=== PATIENT | female | born 1930 | race Caucasian/White ===

== ENCOUNTER 2017-09-08 20:29 | Emergency (ER) | payer OTHER ==
[2017-09-08 21:03] VITALS: BP 155/60
--- NOTE | 2017-09-08 21:12 | UC ---
Dizzy HPI HPI Summary: This is burtonrainer Piedrain documenting for attending Dr. Robyn Quiñonez MD. A 87 y/o female presents to [facility] c/o intermittent dizziness. Currently the patient still experiences intermittent dizziness. She noted that her symptoms haven't worsened. According to the patient, she has been experiencing intermittent dizziness going on since this morning. She noted that for the past couple days, she has been having company over at her house and preparing for her guests. Additionally, yesterday she took an energy tab with caffeine (takes it because it makes her stay awake and work). She also took Motrin because her legs started to hurt. 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 Pt denies any calf pain, nausea, vomiting, abdominal pain and diarrhea, however, she is constipated and has intermittent SOB. She noted that when she walks her breathe is taken away, so she has to stop and rest. She stated that she should be drinking more water to prevent being dehydrated.Additionally, DM, HTN, high triglycerides, high cholesterol and hernia. Last A1C was 7.2. - History Of Current Complaint Chief Complaint: UCDizziness Stated Complaint: DIZZINESS Time Seen by Provider: 09/08/17 20:41 Hx Obtained From: Patient Onset/Duration: Sudden Onset, Lasting Hours, Still Present Timing: Intermittent Episode Lasting Severity Currently: None Pain Intensity: 0 Pain Scale Used: 0-10 Numeric Character: Dizzy Aggravating Factor(s): Nothing Alleviating Factor(s): Nothing Associated Signs And Symptoms: Positive: SOB. Negative: Nausea, Vomiting - Allergies/Home Medications Allergies/Adverse Reactions: Allergies Allergy/AdvReac Type Severity Reaction Status Date / Time No Known Allergies Allergy Verified 09/08/17 20:56 PMH/Surg Hx/FS Hx/Imm Hx - Additional Past Medical History Additional PMH: Hernia, high triglycerides, high cholesterol. Endocrine History: Diabetes Cardiovascular History: Hypertension Other Respiratory History: NEGATIVE Other GI/ History: NEGATIVE Other Neurological History: NEGATIVE Other Psychological History: NEGATIVE Other Cancer History: NEGATIVE - Surgical History Surgical History: Unable to Obtain/Confirm - Family History Known Family History: Positive: None - Social History Alcohol Use: None Substance Use Type: None Smoking Status (MU): Never Smoked Tobacco Review of Systems Constitutional: Negative Skin: Negative Eyes: Negative ENT: Negative Respiratory: Shortness Of Breath - Intermittent Cardiovascular: Negative Gastrointestinal: Other - Constipation Genitourinary: Negative Motor: Negative Neurovascular: Negative Musculoskeletal: Negative Neurological: Other - Dizziness Psychological: Negative All Other Systems Reviewed And Are Negative: Yes Physical Exam - Summary Physical Exam Summary: Appearance: Well-Appearing, No Pain Distress, Well-Nourished. Eyes: conjunctiva clear, no discharge ENT: Hearing grossly normal, no muffled/hoarse voice. Neck: Normal, Supple Respiratory/Lung Sounds: Lungs clear, Normal breath sounds, No respiratory distress, No accessory muscle use Cardiovascular: RRR, [place] systolic murmur Abdomen: Nontender, Soft, no guarding, not distended Bowel Sounds: Present Musculoskeletal: Normal, no pedal edema or calf tenderness Neurological: Alert, muscle tone normal Psychiatric:Normal, age appropriate behavior Skin: Normal, Warm, Dry, Normal color Triage Information Reviewed: Yes Vital Signs: Initial Vital Signs Temp 98.3 F 09/08/17 21:00 Pulse 73 09/08/17 21:00 Resp 18 09/08/17 21:00 BP 155/60 09/08/17 21:00 Pulse Ox 96 09/08/17 21:00 Vital Signs Reviewed: Yes Diagnostics - EKG EKG Comments: 2031 Normal sinus rhythm, heart rate of 60, right bundle branch block, ST depression in V4 V5 possibly V6, left axis deviation, normal MS interval and wide QRS Cardiac Rate: NL - 70 BPM Cardiac Rhythm: Sinus: Normal Dizzy Course/Dx - Course Course Of Treatment: In the ED course, the patient recieved no medications. We discussed her EKG findings of ST depression and RBBB , no prior EKG to compare. Her blood glucose was 135 and her UA was normal. Patient is [place] [facility] Patient will be discharged with recommendation to [facility] with a diagnosis of dizziness. Patient is recommended to go [place] [facility] for further evaluation and management. Patient's daughter will take her to ED. Dr. Geovany Hernandez was reported to regarding patient. Pt is agreeable with this plan. - Differential Dx/Diagnosis Provider Diagnoses: Dizziness. - Physician Notifications Discussed Patient Care With: Geovany Hernandez Time Discussed With Above Provider: 21:40 Instructed by Provider To: Other - Recommends patient comes [place] [facility] Discharge - Sign-Out/Discharge Documenting (check all that apply): Patient Departure - DISCHARGE - Recommends [facility] - Discharge Plan Condition: Stable Disposition: HOME-RECOMMEND TO ED Patient Education Materials: Dizziness (ED) Referrals: Lorena Pradhan MD [Primary Care Provider] - 2 Days Additional Instructions: Plan to send her to ED for further evaluation and management, her daughter will take her to ED I called the report to Dr. Geovany Hernandez . - Billing Disposition and Condition Condition: STABLE Disposition: Home-Recommend to ED
== END 2017-09-08 21:27 | disposition home health service (06) ==
LOC: UCEAST 20:29
DX: R42 Dizziness and giddiness (principal); R06.02 Shortness of breath
CPT/HCPCS: 81003; 93005; 99212; G0463

== ENCOUNTER 2017-09-08 22:41 | Emergency (ER) | payer OTHER ==
[2017-09-08 23:36] LABS: ABS Basophils 0.1 10^3/ul (0-0.2); ABS Eosinophils 0.2 10^3/ul (0-0.6); ABS Lymphocytes 1.5 10^3/ul (1.0-4.8); ABS Monocytes 0.5 10^3/ul (0-0.8); ABS Nucleated RBC 0 10^3/ul; Eosinophil % 2.5 % (0-6); Hematocrit 36 % (35-47); Hemoglobin 12.3 g/dl (12.0-16.0); Lymphocyte % 24.4 % (25-47); Mean Corpuscular HGB Conc 34 g/dl (31-36); Mean Corpuscular Hemoglobin 29 pg (27-31); Mean Corpuscular Volume 86 fL (80-97); Mean Platelet Volume 7.5 um3 (7.4-10.4); Nucleated Red Blood Cells % 0; Platelet Count 225 10^3/ul (150-450); Red Blood Count 4.23 10^6/ul (4.00-5.40); Red Cell Distribution Width 13 % (10.5-15); White Blood Count 6.3 10^3/ul (3.5-10.8)
[2017-09-08 23:52] LABS: EGFR Non-African American 55.1 (>60)
--- NOTE | 2017-09-09 00:17 | ED ---
Syncope/Near Syncope - HPI Summary HPI Summary: Patient complains of waking up lightheaded this morning, and repeat episodes of lightheadedness every time she stands, elevated blood pressure after 182/85. Denies EMERY, vision change, focal deficits, fever, cough, sore throat, CP, SOB, N/ V/D, change in urinary BM. Patient states PCP is adjusting her blood pressure medications, recently restarted atenolol 4 days ago. Also takes losartan, states she took an extra losartan at 4 PM tonight. Med history is HDL, HTN, hypothyroid, DM. - History Of Current Complaint Chief Complaint: EDDizziness Time Seen by Provider: 09/08/17 22:52 Hx Obtained From: Patient Onset/Duration: Gradual Onset Timing: Intermittent Episode Lasting Associated Head Trauma: No Aggravating Factor(s): Position Change Alleviating Factor(s): Rest Associated Signs And Symptoms: Lightheadedness - Allergies/Home Medications Allergies/Adverse Reactions: Allergies Allergy/AdvReac Type Severity Reaction Status Date / Time celecoxib [From Celebrex] Allergy Dizziness Verified 09/08/17 23:04 niacin Allergy Shakes Verified 09/08/17 23:04 Penicillins Allergy Rash Verified 09/08/17 23:03 PMH/Surg Hx/FS Hx/Imm Hx Endocrine/Hematology History: Denies: Hx Anticoagulant Therapy Cardiovascular History: Reports: Hx Hypertension Respiratory History: Reports: Hx Chronic Obstructive Pulmonary Disease (COPD) Infectious Disease History: No Infectious Disease History: Reports: Hx Hepatitis Denies: Traveled Outside the [place] in Last 30 Days - Family History Known Family History: Positive: None - Social History Alcohol Use: None Substance Use Type: Reports: None Smoking Status (MU): Never Smoked Tobacco Review of Systems Constitutional: Negative Eyes: Negative ENT: Negative Cardiovascular: Negative Respiratory: Negative Gastrointestinal: Negative Genitourinary: Negative Musculoskeletal: Negative Skin: Negative Neurological: Negative Psychological: Normal All Other Systems Reviewed And Are Negative: Yes Physical Exam Triage Information Reviewed: Yes Vital Signs On Initial Exam: Initial Vitals Temp Pulse Resp BP Pulse Ox 98.0 F 68 15 133/61 94 09/08/17 23:00 09/08/17 23:00 09/08/17 23:00 09/08/17 23:00 09/08/17 23:00 Vital Signs Reviewed: Yes Appearance: Positive: Well-Appearing Skin: Positive: Warm Head/Face: Positive: Normal Head/Face Inspection Eyes: Positive: Normal Neck: Positive: Supple Respiratory/Lung Sounds: Positive: Clear to Auscultation Cardiovascular: Positive: Normal Abdomen Description: Positive: Nontender Musculoskeletal: Positive: Normal Neurological: Positive: Normal Psychiatric: Positive: Normal AVPU Assessment: Alert - [place] Coma Scale Best Eye Response: 4 - Spontaneous Best Motor Response: 6 - Obeys Commands Best Verbal Response: 5 - Oriented Coma Scale Total: 15 Diagnostics - Vital Signs Vital Signs Temp Pulse Resp BP Pulse Ox 09/08/17 23:00 98.0 F 68 15 133/61 94 - Laboratory Lab Results: Lab Results 09/08/17 09/08/17 09/08/17 Range/Units 23:22 23:22 23:22 WBC 6.3 (3.5-10.8) 10^3/ul RBC 4.23 (4.00-5.40) 10^6/ul Hgb 12.3 (12.0-16.0) g/dl Hct 36 (35-47) % MCV 86 (80-97) fL MCH 29 (27-31) pg MCHC 34 (31-36) g/dl RDW 13 (10.5-15) % Plt Count 225 (150-450) 10^3/ul MPV 7.5 (7.4-10.4) um3 Neut % (Auto) 63.4 (38-83) % Lymph % (Auto) 24.4 L (25-47) % [place] % (Auto) 8.6 H (0-7) % Eos % (Auto) 2.5 (0-6) % Baso % (Auto) 1.1 (0-2) % Absolute Neuts (auto) 4.0 (1.5-7.7) 10^3/ul Absolute Lymphs (auto) 1.5 (1.0-4.8) 10^3/ul Absolute Monos (auto) 0.5 (0-0.8) 10^3/ul Absolute Eos (auto) 0.2 (0-0.6) 10^3/ul Absolute Basos (auto) 0.1 (0-0.2) 10^3/ul Absolute Nucleated RBC 0 10^3/ul Nucleated RBC % 0 Sodium 135 (135-145) mmol/L Potassium 4.1 (3.5-5.0) mmol/L Chloride 101 (101-111) mmol/L Carbon Dioxide 25 (22-32) mmol/L Anion Gap 9 (2-11) mmol/L BUN 22 (6-24) mg/dL Creatinine 0.96 H (0.51-0.95) mg/dL Est GFR ( Amer) 66.7 (>60) Est GFR (Non-Af Amer) 55.1 (>60) BUN/Creatinine Ratio 22.9 H (8-20) Glucose 162 H (70-100) mg/dL Lactic Acid 1.8 (0.5-2.0) mmol/L Calcium 9.9 (8.6-10.3) mg/dL Total Bilirubin 0.40 (0.2-1.0) mg/dL AST 31 (13-39) U/L ALT 35 (7-52) U/L Alkaline Phosphatase 128 H (34-104) U/L Troponin I (<0.04) ng/mL C-Reactive Protein 8.49 H (<8.01) mg/L Total Protein 7.6 (6.4-8.9) g/dL Albumin 4.1 (3.2-5.2) g/dL Globulin 3.5 (2-4) g/dL Albumin/Globulin Ratio 1.2 (1-3) TSH Pending 09/08/17 Range/Units 23:22 WBC (3.5-10.8) 10^3/ul RBC (4.00-5.40) 10^6/ul Hgb (12.0-16.0) g/dl Hct (35-47) % MCV (80-97) fL MCH (27-31) pg MCHC (31-36) g/dl RDW (10.5-15) % Plt Count (150-450) 10^3/ul MPV (7.4-10.4) um3 Neut % (Auto) (38-83) % Lymph % (Auto) (25-47) % [place] % (Auto) (0-7) % Eos % (Auto) (0-6) % Baso % (Auto) (0-2) % Absolute Neuts (auto) (1.5-7.7) 10^3/ul Absolute Lymphs (auto) (1.0-4.8) 10^3/ul Absolute Monos (auto) (0-0.8) 10^3/ul Absolute Eos (auto) (0-0.6) 10^3/ul Absolute Basos (auto) (0-0.2) 10^3/ul Absolute Nucleated RBC 10^3/ul Nucleated RBC % Sodium (135-145) mmol/L Potassium (3.5-5.0) mmol/L Chloride (101-111) mmol/L Carbon Dioxide (22-32) mmol/L Anion Gap (2-11) mmol/L BUN (6-24) mg/dL Creatinine (0.51-0.95) mg/dL Est GFR ( Amer) (>60) Est GFR (Non-Af Amer) (>60) BUN/Creatinine Ratio (8-20) Glucose (70-100) mg/dL Lactic Acid (0.5-2.0) mmol/L Calcium (8.6-10.3) mg/dL Total Bilirubin (0.2-1.0) mg/dL AST (13-39) U/L ALT (7-52) U/L Alkaline Phosphatase (34-104) U/L Troponin I 0.01 (<0.04) ng/mL C-Reactive Protein (<8.01) mg/L Total Protein (6.4-8.9) g/dL Albumin (3.2-5.2) g/dL Globulin (2-4) g/dL Albumin/Globulin Ratio (1-3) TSH Result Diagrams: 09/08/17 23:22 09/08/17 23:22 Lab Statement: Any lab studies that have been ordered have been reviewed, and results considered in the medical decision making process. - Radiology cxr Xray Interpretation: Positive (See Comments) - Bilateral venous congestion Radiology Interpretation Completed By: ED Physician - EKG 1 Cardiac Rate: NL EKG Rhythm: Sinus Rhythm ST Segment: Non-Specific - T wave inversion lead 3. Ectopy: None EKG Interpretation: right bundle-branch block. LVH. Course/Dx Course Of Treatment: Patient complains of waking up lightheaded this morning, and repeat episodes of lightheadedness every time she stands, elevated blood pressure after 182/85. Denies EMERY, vision change, focal deficits, fever, cough, sore throat, CP, SOB, N/V/D, change in urinary BM. Patient states PCP is adjusting her blood pressure medications, recently restarted atenolol 4 days ago. Also takes losartan, states she took an extra losartan at 4 PM tonight. Med history is HDL, HTN, hypothyroid, DM. Vital signs within normal limits and stable. TSH low. Other Labs unremarkable. CXR=Bilateral venous congestion. BNP indicates compensated CHF. Orthostatics negative. Discussewd pt with Dr Whitehead, who recommnded d/c home and Follow-up with primary care for further evaluation of low TSH, htn, and compensated chf. - Diagnoses Provider Diagnoses: Lightheadedness, Elevated blood pressure reading, Mild dehydration, Hyperthyroidism Discharge - Sign-Out/Discharge Documenting (check all that apply): Patient Departure - Discharge Plan Condition: Stable Disposition: HOME Patient Education Materials: Hyperthyroidism (ED), Hypertension (ED), Lightheadedness (ED) Referrals: Lorena Pradhan MD [Primary Care Provider] - Additional Instructions: Follow-up with primary care for further evaluation of hyperthyroidism and adjustment of your Synthroid dose, hypertension and compensated congestive heart failure. Return to the ED for any new or worsening symptoms - Billing Disposition and Condition Condition: STABLE Disposition: Home
[2017-09-09 00:20] LABS: INR 1.01 (0.77-1.02)
[2017-09-09 01:02] LABS: Urine Appearance Clear; Urine Blood Negative (Negative); Urine Color Yellow; Urine Ketones Negative (Negative); Urine Protein Negative (Negative); Urine Specific Gravity 1.009 (1.010-1.030); Urine Urobilinogen Negative (Negative)
[2017-09-09 02:06] VITALS: BP 120/64
--- NOTE | 2017-09-09 07:52 | RAD ---
Indication: Hypertension, dizziness. Single frontal view of the chest performed at 2332 hours was reviewed. No prior study. No mediastinal shift. Cardiomegaly is noted. Mild interstitial prominence consistent with vascular congestion is noted. IMPRESSION: THERE MAY BE SOME MILD VASCULAR CONGESTION PRESENT. R0
== END 2017-09-09 02:04 | disposition home or self-care (01) ==
LOC: ED 22:41
DX: R42 Dizziness and giddiness (principal); I10 Essential (primary) hypertension; E86.0 Dehydration; I51.7 Cardiomegaly; E78.5 Hyperlipidemia, unspecified; E03.9 Hypothyroidism, unspecified; E11.9 Type 2 diabetes mellitus without complications; Z79.899 Other long term (current) drug therapy; Z88.8 Allergy status to other drugs, medicaments and biological substances; Z88.3 Allergy status to other anti-infective agents
CPT/HCPCS: 36415; 71045; 80053; 81003; 83605; 83880; 84443; 84484; 85025; 85610; 86140; 93005; 99283